=== PATIENT | male | born 1950 | race Caucasian/White ===

== ENCOUNTER → 2020-01-12 09:37 | Outpatient (CLI) | payer MEDICARE, SELFPAY ==
--- NOTE | ~2020-01-12 | CT_ITS ---
EXAMINATION: CT chest wo con DATE: 01/12/2020 09:56 INDICATION: Abnormal finding of lung field. Tobacco use. Personal history of nicotine dependence. Emp hysema. TECHNIQUE: Computed tomography (CT) of the chest was performed without intravenous contrast. Automate d exposure control and iterative reconstruction technique were employed. Exam dose: 188.39 mGy-cm to altagracia exam DLP. COMPARISON: 06/25/[address] lung cancer screening FINDINGS: Normal size and homogeneous attenuation of the thyroid gland. No hilar or mediastinal mass lesion or lymphadenopathy. Normal diameter of the thoracic aorta. Normal heart size. No pericardial or pleural effusion. There is focal discoid atelectasis or scarring in the right lower lobe and to a lesser extent left lo wer lobe. No pulmonary infiltrate or consolidation or pulmonary mass lesion is detected. Included upper abdominal structures are unremarkable other than: 1. Diverticulosis of the colon. 2. Several nonspecific hypoattenuating hepatic lesions measuring up to approximately 13 mm maximal di mension Degenerative changes of the thoracic and cervical spine; no suspicious osteolytic or osteoblastic les ions. IMPRESSION: Mild emphysema Mild discoid atelectasis or scarring in the lower lobes Diverticulosis of the colon Several nonspecific hypoattenuating hepatic lesions Reviewed, dictated and finalized At [facility]. Reviewed, dictated and finalized at location [facility].
== END ==
PROVIDERS: PCP Family Medicine; Visit Provider Family Medicine
DX: R91.8 Other nonspecific abnormal finding of lung field (principal); K57.30 Diverticulosis of large intestine without perforation or abscess without bleeding
CPT/HCPCS: 71250

== ENCOUNTER 2020-03-26 15:58 | Outpatient (CLI) | payer MEDICARE, SELFPAY ==
--- NOTE | 2020-03-26 16:11 | ECG_ITS ---
Measurements Intervals [place] Rate: 78 P: 61 IN: 136 QRS: -27 QRSD: 89 T: 56 QT: 365 QTc: 417 Interpretive Statements SINUS RHYTHM INCOMPLETE RIGHT BUNDLE BRANCH BLOCK DELAYED PRECORDIAL R/S TRANSITION BORDERLINE T WAVE ABNORMALITY- INFERIOR LEADS BASELINE ARTIFACT- II, III, AVR, AVL, AVF BORDERLINE ECG Electronically Signed On 03-26-2020 17:32:22 CDT by Amandeep Martinez D.O.
== END 2020-03-26 15:59 | disposition home or self-care (01) ==
PROVIDERS: PCP Family Medicine; Visit Provider Otolaryngology
DX: Z01.818 Encounter for other preprocedural examination (principal); Z87.891 Personal history of nicotine dependence
CPT/HCPCS: 93005

== ENCOUNTER 2020-03-27 00:29 | Outpatient (CLI) | payer MEDICARE, SELFPAY ==
[2020-03-27 16:46] LABS: SARS-CoV-2 RNA PCR Negative
== END 2020-03-27 00:30 | disposition home or self-care (01) ==
LOC: ANHCOVIDDT 00:30
PROVIDERS: PCP Family Medicine; Visit Provider Otolaryngology
DX: Z01.818 Encounter for other preprocedural examination (principal); Z11.59 Encounter for screening for other viral diseases; H93.92 Unspecified disorder of left ear
CPT/HCPCS: 87635; C9803; U0003

== ENCOUNTER 2020-03-30 01:11 | Day surgery (SDC) | payer MEDICARE, SELFPAY ==
[2020-03-22 10:55] VITALS: BMI 27.8
--- NOTE | 2020-03-25 06:28 | PM.HPGS ---
History of Present Illness History of Present Illness Consent: Risks, benefits, and alternatives have been discussed and questions answered. Patient agrees to proceed with procedure. Chief complaint: LESION LEFT EAR CANAL Narrative: Soniya Macario is a 69 year old male Review of Systems Review of Systems: Narrative: Patient presented with an ulcerated lesion in the ear canal eroding bone chest clear heartt negative ulcer ear canal left plan excisional biopsy excision PMFSH Social History Social History Years smoked: 40 Smoking status: Former smoker Second hand tobacco smoke exposure: No Smoking end date: 11/05/11 Alcohol intake: current Meds Home Medications and Allergies Home Medications Medication Instructions Recorded Confirmed Type gabapentin 300 mg capsule 600 mg PO BID #360 cap 09/22/19 03/22/20 Rx doxazosin 4 mg tablet 4 mg PO DAILY 11/03/19 03/22/20 History fluoxetine 10 mg capsule 10 mg PO DAILY 11/03/19 03/22/20 History omeprazole 20 mg capsule,delayed 20 mg PO BID 11/03/19 03/22/20 History release topiramate 100 mg tablet 100 mg PO BID 11/03/19 03/22/20 History mirabegron 50 mg tablet,extended 50 mg PO DAILY #30 tablet 03/08/20 03/22/20 Rx release 24 hr butterbur root extract 50 mg See Rx Instructions PO BID cap 03/15/20 03/22/20 History capsule naproxen sodium 220 mg capsule 220 mg PO BID PRN 03/15/20 03/22/20 History riboflavin (vitamin B2) 25 mg 100 mg PO DAILY tablet 03/15/20 03/22/20 History tablet Allergies Allergy/AdvReac Type Severity Reaction Status Date / Time No Known Allergies Allergy Unknown Verified 03/22/20 10:50 Assessment and Plan Additional Plan Plan is to excise and debride the ulcer lesion in the left ear canal
[2020-03-30] VITALS (7 sets, daily range): BP systolic 94–140; BP diastolic 63–83; PULSE 61–74; RESP 9–18; TEMP 36.1–36.2; O2SAT 94–99
--- NOTE | 2020-03-30 06:15 | WPDHPUPDATE1 ---
History and Physical Update Update Date/Time: 03/30/20 06:15 History and Physical has been reviewed, including an updated exam of the patient. There are NO changes in the patient's condition. Risks, benefits, and alternatives have been discussed and questions answered. Patient agrees to proceed with procedure.
[2020-03-30] MEDS: LACTATED RINGERS 1,000 ML 30 ML IV CONT (06:30)
--- NOTE | 2020-03-30 07:30 | P.PNAN_ITS ---
Anes - Initial Pre Proc Eval Procedure: Operation Date: 03/30/20 08:00 Proposed Procedures p Excision Lesion Left Ear Canal - Dakota Murdock MD Date/Time: 03/30/20 07:30 Surgeon: Dakota Murdock MD Pre Op Diagnosis: LESION LEFT EAR CANAL Patient Data Age: 69 Gender: M Height: 5 ft 10 in Weight: 87.2 kg Last Vital Signs Temp 36.2 C L 03/30/20 06:05 Pulse 74 03/30/20 06:05 Resp 18 03/30/20 06:05 BP 115/73 03/30/20 06:05 Pulse Ox 97 03/30/20 06:05 Allergies Allergy/AdvReac Type Severity Reaction Status Date / Time No Known Allergies Allergy Unknown Verified 03/30/20 06:59 Home Medications Medication Instructions Recorded Confirmed Type doxazosin 4 mg tablet 4 mg PO DAILY 11/03/19 03/30/20 History fluoxetine 10 mg capsule 10 mg PO DAILY 11/03/19 03/30/20 History omeprazole 20 mg capsule,delayed 20 mg PO BID 11/03/19 03/30/20 History release topiramate 100 mg tablet 100 mg PO BID 11/03/19 03/30/20 History mirabegron 50 mg tablet,extended 50 mg PO DAILY #30 tablet 03/08/20 03/30/20 Rx release 24 hr butterbur root extract 50 mg See Rx Instructions PO BID cap 03/15/20 03/30/20 History capsule naproxen sodium 220 mg capsule 220 mg PO BID PRN 03/15/20 03/30/20 History riboflavin (vitamin B2) 25 mg 100 mg PO DAILY tablet 03/15/20 03/30/20 History tablet gabapentin 300 mg capsule 600 mg PO BID #360 cap 03/26/20 03/30/20 Rx Patient hx anesthesia problems: none Family hx anesthesia problems: none PMFSH Surgical History Surgical History H/O hernia repair Family History Family History Other No family history of cardiovascular disease Social History Social History Years smoked: 40 Smoking status: Former smoker Second hand tobacco smoke exposure: No Smoking end date: 11/05/11 Alcohol intake: current Anes - Eval Final PreProcedure Day of Procedure 03/30/20 07:30 Patient weight: overweight Heart: regular rate and rhythm Lungs: clear to auscultation Airway: Mallampati scale class II Neurological: alert and oriented Last oral intake: >/= 8 hours ASA classification: III Emergent: no Anesthetic plan: proceed Anesthesia type and monitoring: general LMA and standard monitoring Informed Consent: The patient's anesthetic plan and its attendant risks and bene fits were discussed with the patient/family/POA. Questions were solicited and answers provided to the satisfaction of the patient/family/POA.
[2020-03-30] MEDS: LIDO 1%/EPINEPHRINE 1:100,000 20 ML VIAL INFILTRATE (08:17)
--- NOTE | 2020-03-30 08:18 | PM.PROC ---
Procedure Note - Detailed Date of procedure: 03/30/20 Pre-op diagnosis: LESION LEFT EAR CANAL Description of procedure: Patient was prepped and draped in fashion along a seizure the left ear was inspected the floor of the left ear canal there was an eroded area exposing bone was no soft tissue lesions seen Sanchez for the bone was eroded a CT scan will be obtained at the next step Anesthesia: GLMA Surgeon: Dakota Murdock MD Estimated blood loss (mL): 5.0 Drains: No Packing: No Pathology: yes Condition: stable Disposition: PACU
== END 2020-03-30 09:54 | disposition home or self-care (01) ==
PROVIDERS: PCP Family Medicine; Visit Provider Otolaryngology
PROC: (CPT 69100; principal; 2020-03-30 08:00)
DX: H93.8X2 Other specified disorders of left ear (principal); Z87.891 Personal history of nicotine dependence
CPT/HCPCS: 69100; 87635; 88304; 88309; 93005; A9270; C9803; J1100; J2405; J2704; J3010; J7120; U0003

== ENCOUNTER 2020-04-13 08:36 | Outpatient (CLI) | payer MEDICARE, SELFPAY ==
--- NOTE | 2020-04-15 13:35 | WPDPFTINT ---
PFT Interpretation PFT Interpretation: This PFT met all criteria for ATS standards and reproducibility FEV/FVC post bronchodilator 61% of predicted FEV1 76% or 2.27 liters FVC 84% or 3.70 liters FEV1 improved by 280 ml and 14% after bronchodilator challenge TLC 114% or 7.43 liters RV 65% RV/TLC53% DLCO 80% when adjusted for alveolar volume but not adjusted for hemoglobin Flow volume loops showed significant expiratory coving Impression: Moderate obstructive ventilatory defect consistent with Asthma or Reactive Airway Disease although COPD component cannot be rule out. Clinical correlation is advised.
--- NOTE | 2020-04-19 12:07 | WPDPFTINT ---
PFT Interpretation PFT Interpretation: DOS: 04/13/2020 REQUESTING: Dr. Amairani Hensley REASON FOR TESTING: Shortness of breath PULMONARY FUNCTION TESTS Results are reproducible. Spirometry: FEV1 is 66%, moderately reduced. FVC 78%, mildly reduced. Decreased FEV1% consistent with airflow obstruction. XHI75-91% reduced at 20%. After bronchodilator there is a significant response to bronchodilator in the FEV1, 14% and 280 ml. There is a 47% increase in the small airways flows after bronchodilator. Lung volumes: TLC 114%, upper end of normal. RV 156% consistent with moderate air trapping. Increased airway resistance. Diffusion: DLCO is 80%, normal. Flow volume loop: Scooping of the expiratory limb. IMPRESSION: Moderate obstructive ventilatory defect which is severe in the small airways, moderate air trapping, increased airway resistance with a good response to bronchodilator. In the proper clinical setting, this pattern is may be consistent with COPD or COPD/asthma overlap. Micheline Monique MD
== END 2020-04-13 08:37 | disposition home or self-care (01) ==
PROVIDERS: PCP Family Medicine; Visit Provider Family Medicine
DX: Z87.09 Personal history of other diseases of the respiratory system (principal)
CPT/HCPCS: 94060; 94726; 94729

== ENCOUNTER 2020-05-24 08:41 | Outpatient (CLI) | payer MEDICARE, SELFPAY ==
--- NOTE | ~2020-05-24 | CT_ITS ---
EXAMINATION: CT IAC/mastoids BI w con DATE: 05/24/2020 09:31 INDICATION: Ulcer of left external ear status post debridement. TECHNIQUE: Computed tomography (CT) of the temporal bones was performed with 75 mL Omnipaque 350 intr avenous contrast. Automated exposure control and iterative reconstruction technique were employed. Th e dose-length product was 271.95 mGy-cm. COMPARISON: None FINDINGS: RIGHT TEMPORAL BONE: The internal auditory canal, cochlea, vestibule, semicircular canals, vestibular aqueduct, carotid ca nal, jugular bulb, facial nerve course, ossicles, Prussak space, scutum, tympanic membrane, and masto id air cells are normal. There is a small volume of cerumen in right external auditory canal. LEFT TEMPORAL BONE: The internal auditory canal, cochlea, vestibule, semicircular canals, vestibular aqueduct, carotid ca nal, jugular bulb, facial nerve course, ossicles, Prussak space, scutum, and tympanic membrane are no rmal. There is soft tissue lining the left external auditory canal with erosions of bone into the lef t mastoid air cells. IMPRESSION: 1. Soft tissue lining left external auditory canal with erosions of bone, consistent with otitis exte rna. Reviewed, dictated and finalized at location A. IMPRESSION: 1. Soft tissue lining left external auditory canal with erosions of bone, consi stent with otitis externa.
[2020-05-24 09:22] LABS: Estimated Glomerular Filt Rate > 60
== END 2020-05-24 08:42 | disposition home or self-care (01) ==
PROVIDERS: PCP Family Medicine; Visit Provider Otolaryngology
DX: L98.492 Non-pressure chronic ulcer of skin of other sites with fat layer exposed (principal)
CPT/HCPCS: 36415; 70481; Q9967

== ENCOUNTER 2020-07-23 13:16 | Outpatient (CLI) | payer MEDICARE, SELFPAY ==
--- NOTE | ~2020-07-23 | XR_ITS ---
XR lumbar spine 6V w bending 07/23/2020 13:31 Indication: Low back pain Procedure: 7 views lumbar spine Comparison: No prior studies for comparison. Findings: There is disc narrowing at all lumbar levels, most advanced at L5-S1. There is grade 1 dege nerative spondylolisthesis at L4-5. There is facet hypertrophy at L4-5 and L5-S1. No acute fracture o r traumatic malalignment. Sacral foramen are symmetric. Impression: 1: Moderate-severe lumbar spondylosis. Reviewed, dictated and finalized at location B. Impression: 1: Moderate-severe lumbar spondylosis.
== END 2020-07-23 13:17 | disposition home or self-care (01) ==
PROVIDERS: PCP Family Medicine; Visit Provider Family Medicine
DX: M47.896 Other spondylosis, lumbar region (principal)
CPT/HCPCS: 72114

== ENCOUNTER → 2021-02-28 10:53 | Outpatient (CLI) | payer MEDICARE, SELFPAY ==
--- NOTE | ~2021-02-28 | CT_ITS ---
EXAMINATION:CT lung screening DATE: 02/28/2021 11:10 INDICATION: Personal history of tobacco dependence. Smoker who quit 9 years ago with 39 pack year his tory. TECHNIQUE: Computed tomography (CT) of the chest was performed without intravenous contrast. Automate d exposure control and iterative reconstruction technique were employed. The dose-length product (DLP ) was 151.91 mGy-cm. COMPARISON: Chest CT 01/12/2020 FINDINGS: There is moderate emphysema. There is a 2 mm nodule in right upper lobe. There is mild atel ectasis bilaterally. No pleural effusion. The heart size is normal. No pericardial effusion. There ar e no pathologically enlarged lymph nodes. There is mild bilateral gynecomastia. There is mild thoraci c spondylosis. IMPRESSION: 1. Lung-RADS category 2: Benign appearance or behavior. Continue annual screening with noncontrast lo w-dose chest CT in 12 months. Reviewed, dictated and finalized at location A. IMPRESSION: 1. Lung-RADS category 2: Benign appearance or behavior. Continue annual screeni ng with noncontrast low-dose chest CT in 12 months.
== END ==
PROVIDERS: PCP Family Medicine; Visit Provider Family Medicine
DX: Z12.2 Encounter for screening for malignant neoplasm of respiratory organs (principal); Z87.891 Personal history of nicotine dependence
CPT/HCPCS: 71271

== ENCOUNTER → 2021-05-20 14:24 | Outpatient (CLI) | payer MEDICARE, SELFPAY ==
--- NOTE | ~2021-05-20 | XR_ITS ---
XR_CERV2-3V_CR DATE: 05/20/2021 14:50 INDICATION: Radicular neck pain TECHNIQUE: AP, open-mouth, lateral, swimmer views COMPARISON: None FINDINGS: There is straightening of the cervical spine. C1 and C2 are normally aligned and the odonto id process is intact. There is moderately severe degenerative disc disease with associated mild retrolisthesis at C3-4 and C4-5 and C5-6. Prominent degenerative disc disease is suggested at C6-7, although this level is not optimally imaged . No fracture or dislocation or locked facet or prevertebral soft tissue swelling is evident. IMPRESSION: Multilevel degenerative disc disease with associated mild retrolisthesis at C3-4, C4-5 an d C5-6 Reviewed, dictated and finalized at [facility]. Reviewed, dictated and finalized at location B. IMPRESSION: Multilevel degenerative disc disease with associated mild retrolist hesis at C3-4, C4-5 and C5-6
== END ==
PROVIDERS: PCP Family Medicine; Visit Provider Physician Assistant
DX: M54.12 Radiculopathy, cervical region (principal); M50.321 Other cervical disc degeneration at C4-C5 level
CPT/HCPCS: 72040

== ENCOUNTER → 2022-04-17 15:16 | Outpatient (CLI) | payer MEDICARE, SELFPAY ==
--- NOTE | ~2022-04-17 | CT_ITS ---
EXAMINATION: CT lung screening DATE: 04/17/2022 15:33 INDICATION: Z87.891 - Personal history of nicotine dependence TECHNIQUE: Computed tomography (CT) of the chest was performed without intravenous contrast. Addition al 3D reconstructions utilizing coronal maximum intensity projection (MIP) were performed. Automated exposure control and iterative reconstruction technique were employed. The dose-length product was 14 1.44 mGy-cm. COMPARISON: 02/28/2021 FINDINGS: Moderate emphysema. Unchanged 2 mm right upper lobe nodule. No new or enlarging pulmonary nodules kd ntified. No pneumonia, pulmonary edema or pleural effusion. Heart size is normal. No pericardial effu katherine. Thoracic aorta is normal in caliber. No pathologically enlarged thoracic lymphadenopathy. Coupl e small calcified splenic nodules consistent with old granulomatous disease. 1.2 cm right hepatic cys t. Mild thoracic spondylosis. IMPRESSION: 1. Lung-RADS category 2: Benign appearance or behavior. Continue annual screening with noncontrast lo w-dose chest CT in 12 month Reviewed, dictated and finalized at location A. IMPRESSION: 1. Lung-RADS category 2: Benign appearance or behavior. Continue annual screeni ng with noncontrast low-dose chest CT in 12 month
== END ==
PROVIDERS: PCP Family Medicine; Visit Provider Physician Assistant
DX: Z12.2 Encounter for screening for malignant neoplasm of respiratory organs (principal); Z87.891 Personal history of nicotine dependence
CPT/HCPCS: 71271